=== PATIENT | female | born 1990 | race Caucasian/White ===

== ENCOUNTER 2025-04-22 06:04 | Inpatient (IN) | payer OTHER ==
[2025-04-22 06:47] VITALS: BMI 41.3
[2025-04-22] MEDS ORDERED: Carboprost 250 MCG/ML AMP IM PRN (08:01)
[2025-04-22] MEDS ORDERED: Ondansetron PF 4 MG/2 ML Vial IVP PRN ×3 (08:01→21:22)
[2025-04-22] MEDS ORDERED: Acetaminophen 500 MG TAB PO PRN (08:01)
[2025-04-22] MEDS ORDERED: Lidocaine 1% (PF) 30 ML VIAL SC PRN (08:01)
[2025-04-22] MEDS ORDERED: hydrALAZINE 20 MG/ML VIAL SLOW IVP PRN ×2 (08:01→21:22)
[2025-04-22] MEDS ORDERED: HYDROcodone/Acetaminophen 5/325 mg Tablet PO PRN (08:01)
[2025-04-22] MEDS ORDERED: Diphenoxylate HCl/Atropine Tablet PO PRN (08:01)
[2025-04-22] MEDS ORDERED: Methylergonovine 0.2 MG/ML VIAL IM PRN (08:01)
[2025-04-22 08:08] LABS: Hematocrit 31.9 % (34.9-44.5); Hemoglobin 10.6 g/dL (12.0-15.5); Mean Corpuscular Volume 85.1 fL (81.6-98.3); Red Blood Cell (RBC) Count 3.75 10x6/uL (3.90-5.03); White Blood Cell (WBC) Count 7.89 10x3/uL (3.5-10.5)
[2025-04-22 08:09] LABS: Mean Corpuscular Hemoglobin 28.3 pg (27.0-33.0); Platelet Count 253 10x3/uL (150-450)
[2025-04-22] MEDS: Oxytocin 30 units/NS 500 ML 500 ML IV SCH ×2 (08:16→20:01)
[2025-04-22 08:25] LABS: ALT (SGPT) 20 U/L (Less than 34); AST (SGOT) 32 U/L (11-34); Albumin 2.8 g/dL (3.1-4.5); Alkaline Phosphatase 136 U/L (40-110); Anion Gap 14 mmol/L (10-20); BUN (Urea Nitrogen) 6 mg/dL (7.0-18.7); Bilirubin, Total 0.5 mg/dL (0.3-1.2); Calc. Creatinine Clearance 196 mL/min (70-130); Calcium 8.6 mg/dL (7.8-10.44); Carbon Dioxide 17 mmol/L (22-29); Chloride 111 mmol/L (98-107); Globulin 2.7 g/dL (2.4-3.5); Glucose 102 mg/dL (70-105); Potassium 3.7 mmol/L (3.5-5.1); Sodium 138 mmol/L (136-145)
[2025-04-22 08:41] LABS: Hep B Surf Ag - L&D Non-Reactive S/CO (NonReactive)
[2025-04-22 08:42] LABS: Syphilis Antibody Index 0.05 S/CO (<1.00 Non-Reactive)
[2025-04-22] MEDS: fentaNYL/Ropivacaine Epidural 100 ML ONE (12:04)
[2025-04-22] MEDS ORDERED: Acetaminophen 325 MG TAB PO PRN (16:31)
[2025-04-22] MEDS ORDERED: diphenhydrAMINE 50 MG/ML VIAL IVP PRN (16:31)
[2025-04-22] MEDS ORDERED: fentaNYL 2 mcg/Ropivacaine 0.2% Epidural 100 ML CADD EPIDURAL SCH (16:45)
[2025-04-22] MEDS ORDERED: Communication Order-Pharmacy FS SCH (16:45)
[2025-04-22] MEDS: Ibuprofen 800 MG TAB PO PRN (20:45)
[2025-04-22] MEDS ORDERED: Milk Of Magnesia 30 ML UDCUP PO PRN (21:22)
[2025-04-22] MEDS ORDERED: diphenhydrAMINE 25 MG CAP PO PRN (21:22)
[2025-04-22] MEDS ORDERED: Bisacodyl 10 MG SUPP PR PRN (21:22)
[2025-04-22] MEDS ORDERED: Benzocaine-Menthol 82.5 ML CAN TOP PRN (21:22)
[2025-04-22] MEDS ORDERED: Preparation H Ointment 28 GM TUBE PR PRN (21:22)
[2025-04-22] MEDS ORDERED: Lanolin Ointment 7 GM TUBE TOP PRN (21:22)
[2025-04-22] MEDS: HYDROcodone/Acetaminophen 5/325 mg Tablet PO PRN (21:36)
[2025-04-23] MEDS: Ibuprofen 800 MG TAB PO SCH (04:19)
[2025-04-23] MEDS: Ferrous Sulfate 325 MG TAB PO SCH (07:43)
[2025-04-23] MEDS ORDERED: Bupivacaine HCl 0.5%/Epinephrine 1:200,000/PF 30 ml Vial ONE (12:12)
[2025-04-23] MEDS ORDERED: Bupivacaine 0.25% HCL 30 ML VIAL ONE (12:12)
[2025-04-23 15:53] VITALS: BP 129/80; TEMP 98.1
== END 2025-04-23 20:40 | disposition home or self-care (01) | DRG 807 ==
LOC: CSHLD 06:04 → CSHPP 21:15
PROVIDERS: ADMIT Student in an Organized Health Care Education/Training Program; ATTEND Student in an Organized Health Care Education/Training Program
PROC: 10E0XZZ Delivery of Products of Conception, External Approach (ICD-10-PCS; principal; 2025-04-22)
PROC: 10907ZC Drainage of Amniotic Fluid, Therapeutic from Products of Conception, Via Natural or Artificial Opening (ICD-10-PCS; 2025-04-22)
PROC: 0HQ9XZZ Repair Perineum Skin, External Approach (ICD-10-PCS; 2025-04-22)
DX: O13.4 Gestational [pregnancy-induced] hypertension without significant proteinuria, complicating childbirth (principal); Z37.0 Single live birth; Z3A.39 39 weeks gestation of pregnancy; Z91.040 Latex allergy status; O70.0 First degree perineal laceration during delivery
CPT/HCPCS: 51702; 80053; 85027; 86780; 86850; 86900; 86901; 87340; J0665; J2590; J7120

== ENCOUNTER 2025-04-25 09:49 | Emergency (ER) | payer OTHER ==
[2025-04-25 10:26] LABS: Glucose, Urine (Dipstick) Normal (Negative); Leukocyte 100 (Negative); Protein, Urine (Dipstick) Negative (Neg-Trace); Specific Gravity, Urine 1.010 (1.005-1.030)
[2025-04-25] MEDS ORDERED: Acetaminophen 500 MG TAB ONE (10:33)
[2025-04-25 10:44] LABS: #Basophils 0.04 10x3/uL (0.0-0.2); #Eosinophils 0.40 10x3/uL (0.0-0.5); #Monocytes 0.56 10x3/uL (0.0-1.1); #Neutrophils 5.84 10x3/uL (1.5-8.4); %Basophils 0.5 % (0.0-2.0); %Eosinophils 4.5 % (0.0-6.0); %Lymphocytes 22.2 % (18.0-47.0); %Monocytes 6.3 % (0.0-10.0); %Neutrophils 65.9 % (40.0-75.0); Hematocrit 29.1 % (34.9-44.5); Hemoglobin 9.6 g/dL (12.0-15.5); Mean Corpuscular Hemoglobin 27.8 pg (27.0-33.0); Mean Corpuscular Volume 84.3 fL (81.6-98.3); Platelet Count 285 10x3/uL (150-450); Red Blood Cell (RBC) Count 3.45 10x6/uL (3.90-5.03); White Blood Cell (WBC) Count 8.86 10x3/uL (3.5-10.5)
[2025-04-25 10:57] LABS: CAUTI Indications for Culture Pelvic or flank pain
[2025-04-25 10:58] LABS: Bacteria/HPF 1+ HPF (None Seen)
[2025-04-25 10:58] LABS: ALT (SGPT) 19 U/L (Less than 34); AST (SGOT) 29 U/L (11-34); Albumin 2.9 g/dL (3.1-4.5); Alkaline Phosphatase 109 U/L (40-110); Anion Gap 11 mmol/L (10-20); BUN (Urea Nitrogen) 8 mg/dL (7.0-18.7); Bilirubin, Total 0.3 mg/dL (0.3-1.2); Calc. Creatinine Clearance 0 mL/min (70-130); Calcium 8.7 mg/dL (7.8-10.44); Carbon Dioxide 22 mmol/L (22-29); Chloride 112 mmol/L (98-107); Globulin 2.8 g/dL (2.4-3.5); Glucose 84 mg/dL (70-105); Potassium 4.2 mmol/L (3.5-5.1); Sodium 141 mmol/L (136-145)
[2025-04-25 10:59] LABS: Urine Culture Reflex No No
== END 2025-04-25 11:09 | disposition home or self-care (01) ==
LOC: CSHERS 09:49
DX: O86.4 Pyrexia of unknown origin following delivery (principal); O90.81 Anemia of the puerperium
CPT/HCPCS: 36415; 80053; 81001; 85025; 87086; 87428; 99283

== ENCOUNTER 2025-05-08 17:34 | Emergency (ER) | payer OTHER ==
[~2025-05-08 17:34] MED LIST: Iopamidol 370 76% 100 ML VIAL ONE
[2025-05-08 19:07] LABS: #Basophils Less than 0.03 10x3/uL (0.0-0.2); #Eosinophils 0.03 10x3/uL (0.0-0.5); #Monocytes 0.28 10x3/uL (0.0-1.1); #Neutrophils 5.18 10x3/uL (1.5-8.4); %Basophils 0.3 % (0.0-2.0); %Eosinophils 0.5 % (0.0-6.0); %Lymphocytes 11.9 % (18.0-47.0); %Monocytes 4.5 % (0.0-10.0); %Neutrophils 82.3 % (40.0-75.0); Hematocrit 37.4 % (34.9-44.5); Hemoglobin 12.3 g/dL (12.0-15.5); Mean Corpuscular Hemoglobin 27.5 pg (27.0-33.0); Mean Corpuscular Volume 83.7 fL (81.6-98.3); Platelet Count 334 10x3/uL (150-450); Red Blood Cell (RBC) Count 4.47 10x6/uL (3.90-5.03); White Blood Cell (WBC) Count 6.29 10x3/uL (3.5-10.5)
[2025-05-08 19:10] LABS: ALT (SGPT) 27 U/L (Less than 34); AST (SGOT) 30 U/L (11-34); Albumin 4.0 g/dL (3.1-4.5); Alkaline Phosphatase 119 U/L (40-110); Anion Gap 12 mmol/L (10-20); BUN (Urea Nitrogen) 17 mg/dL (7.0-18.7); Bilirubin, Total 0.6 mg/dL (0.3-1.2); Calc. Creatinine Clearance 0 mL/min (70-130); Calcium 9.0 mg/dL (7.8-10.44); Carbon Dioxide 24 mmol/L (22-29); Chloride 107 mmol/L (98-107); Globulin 2.9 g/dL (2.4-3.5); Glucose 131 mg/dL (70-105); Potassium 4.4 mmol/L (3.5-5.1); Sodium 139 mmol/L (136-145)
[2025-05-08 19:16] LABS: Troponin I Less than 0.010 ng/mL (< 0.028)
[2025-05-08 19:17] LABS: Glucose, Urine (Dipstick) Normal (Negative); Leukocyte 25 (Negative); Protein, Urine (Dipstick) 15 mg/dl (Neg-Trace); Specific Gravity, Urine 1.010 (1.005-1.030)
[2025-05-08 19:31] LABS: Bacteria/HPF 2+ HPF (None Seen); CAUTI Indications for Culture Pelvic or flank pain
[2025-05-08 19:33] LABS: Urine Culture Reflex No No
== END 2025-05-08 21:52 | disposition home or self-care (01) ==
LOC: CSHERS 17:34
DX: O86.4 Pyrexia of unknown origin following delivery (principal); O99.891 Other specified diseases and conditions complicating pregnancy; R19.7 Diarrhea, unspecified; R07.89 Other chest pain
CPT/HCPCS: 36415; 71045; 71275; 80053; 81001; 83605; 83880; 84484; 85025; 87040; 87086; 87428; 93005; Q9967